=== PATIENT | female | born 1945 | race Two or more races ===

== ENCOUNTER 2020-12-22 10:56 | Outpatient (CLI) | payer OTHER | END 2020-12-22 11:22 | disposition home or self-care (01) | LOC: SONOGRAMA 10:56 → EDBD 10:56 → SONOGRAMA 11:22 | PROVIDERS: ATTEND Surgery | DX: C50.512 Malignant neoplasm of lower-outer quadrant of left female breast (principal); N60.11 Diffuse cystic mastopathy of right breast; N60.12 Diffuse cystic mastopathy of left breast ==

== ENCOUNTER 2021-05-25 06:39 | Day surgery (SDC) | payer OTHER ==
[~2021-05-25 06:39] MED LIST: LOSARTAN POTASS50 MG PO
== END 2021-05-25 17:35 | disposition home or self-care (01) ==
LOC: CIR.AMB 06:39
PROVIDERS: ATTEND Surgery
DX: C50.212 Malignant neoplasm of upper-inner quadrant of left female breast (principal); C50.312 Malignant neoplasm of lower-inner quadrant of left female breast; Z17.0 Estrogen receptor positive status [ER+]; I10 Essential (primary) hypertension